=== PATIENT | male | born 1965 | race Caucasian/White ===

== ENCOUNTER 2020-06-23 09:46 | Emergency (ER) | payer OTHER ==
[~2020-06-23] VITALS: Ht 165.1 cm; Wt 65.8 kg
[2020-06-23] MEDS ORDERED: MEDROLDOSEPACK PO (13:57)
[2020-06-23] MEDS ORDERED: NABUMETONE 750750 M1 PO (13:57)
[2020-06-23] MEDS ORDERED: PERCOCET PO (13:57)
[2020-06-23] MEDS ORDERED: CITRATE OF MAG296 M1 PO (13:58)
[2020-06-23 14:19] VITALS: BP 148/72
== END 2020-06-23 14:20 | disposition home or self-care (01) ==
LOC: M.ERS 09:46
DX: M54.42 Lumbago with sciatica, left side (principal); M51.36 Other intervertebral disc degeneration, lumbar region; F17.210 Nicotine dependence, cigarettes, uncomplicated

== ENCOUNTER 2020-07-18 12:47 | Emergency (ER) | payer OTHER ==
[~2020-07-18] VITALS: Ht 165.1 cm; Wt 59.0 kg
[~2020-07-18 12:47] MED LIST changes: -ACETAMINOPHEN-1 EACH; -MOBIC7.5 MG PO
[2020-07-18] MEDS ORDERED: MOBIC7.5 MG PO (13:00)
[2020-07-18] MEDS ORDERED: ACETAMINOPHEN-1 EACH (13:01)
[2020-07-18 13:29] LABS: ABSOLUTE BASOPHILS 0.1 thou/uL (0.0-0.2); ABSOLUTE EOSINOPHILS 0.1 thou/uL (0.0-0.7); ABSOLUTE MONOCYTES 0.6 thou/uL (0.0-1.2); ABSOLUTE NEUTROPHILS 5.1 thou/uL (1.6-8.1); EOSINOPHILS 1.8 %; HEMATOCRIT 47.6 % (42.0-52.0); HEMOGLOBIN 16.5 gm/dL (14.0-18.0); LYMPHOCYTES 25.3 %; MCH 31.7 pg (26.0-34.0); MCHC 34.7 g/dL (28.0-37.0); MCV 91.5 fL (80.0-100.0); MONOCYTES 7.5 %; MPV 6.2 fl. (7.2-11.1); NUCLEATED RBCS 0 /100WBC; PLATELET COUNT* 393 thou/uL (150-400); POLYS 64.4 %; RBC 5.21 mil/uL (4.50-6.00); RDW-CV 12.7 % (10.5-14.5)
[2020-07-18 13:37] LABS: CALCIUM 9.4 mg/dL (8.5-10.1); CREATININE 0.9 mg/dL (0.6-1.3)
[2020-07-18 13:41] LABS: APTT 31.2 Seconds (25.0-31.3)
[2020-07-18 13:42] LABS: ALBUMIN 3.4 g/dL (3.4-5.0); TOTAL BILIRUBIN 0.5 mg/dL (<0.1-1.0); TOTAL PROTEIN 7.7 g/dL (6.4-8.2)
[2020-07-18 14:35] LABS: URINE BILIRUBIN NEGATIVE (Negative); URINE BLOOD NEGATIVE (Negative); URINE CLARITY CLEAR; URINE COLOR YELLOW; URINE GLUCOSE-RANDOM NEGATIVE (Negative); URINE KETONES NEGATIVE (Negative); URINE LEUKOCYTES-REFLEX NEGATIVE (Negative); URINE NITRITE-REFLEX NEGATIVE (Negative); URINE PROTEIN NEGATIVE (Negative); URINE SPECIFIC GRAVITY 1.015 (1.005-1.030); URINE UROBILINOGEN 0.2 E.U./dl (0.2-1.0)
[2020-07-18 15:55] VITALS: BP 137/90
== END 2020-07-18 15:55 | disposition short-term general hospital (02) ==
LOC: M.ERS 12:47
PROVIDERS: Emergency Medicine Emergency Medical Services; Physician Assistant
DX: M46.26 Osteomyelitis of vertebra, lumbar region (principal); Z20.828 Contact with and (suspected) exposure to other viral communicable diseases; F17.210 Nicotine dependence, cigarettes, uncomplicated

== ENCOUNTER → 2020-07-18 | Outpatient (CLI) | payer OTHER ==
[~2020-07-18] MED LIST: ACETAMINOPHEN-1 EACH; CITRATE OF MAG296 M1 PO; MEDROLDOSEPACK PO; MOBIC7.5 MG PO; NABUMETONE 750750 M1 PO; PERCOCET PO
== END ==
LOC: M.MRI 08:04
DX: M51.36 Other intervertebral disc degeneration, lumbar region (principal); M48.061 Spinal stenosis, lumbar region without neurogenic claudication; M25.78 Osteophyte, vertebrae